=== PATIENT | female | born 1975 | race Caucasian/White ===

== ENCOUNTER 2017-09-23 14:05 | Emergency (ER) | payer OTHER ==
[2017-09-23 14:06] VITALS: BMI 26.5
[2017-09-23 14:20] VITALS: BP 118/79; PULSE 84; RESP 16; TEMP 98.7; O2SAT 98
--- NOTE | 2017-09-23 14:39 | C.PDOC ---
History Of Present Illness 41 y/o female presents to ER complaining of sinus congestion and headache for two days. She admits to taking dayquil experiencing limited relief. The patient denies any fever, cough, and chest congestion. SINUS HILDA, CERVANTES X 2 DAYS. NO FEVER. DENIES COUGH, CHEST HILDA. LIMITED RELIEF W DAYQUIL EXAM NAD HEENT +SINUS TEND W HILDA; +CLEAR RHINORRHEA LUNGS CTA B/L NO W/R/R Time Seen by Provider: 09/23/17 14:19 Chief Complaint (Nursing): Cough, Cold, Congestion History Per: Patient History/Exam Limitations: no limitations Onset/Duration Of Symptoms: Days Current Symptoms Are (Timing): Still Present Location Of Pain: Sinus/es, Headache Associated Symptoms: denies: Fever, Cough, Other (chest congestion ) Recent travel outside of the [place]: No Past Medical History Reviewed: Historical Data, Nursing Documentation, Vital Signs Vital Signs: Last Vital Signs Temp 98.7 F 09/23/17 14:17 Pulse 84 09/23/17 14:17 Resp 16 09/23/17 14:17 BP 118/79 09/23/17 14:17 Pulse Ox 98 09/23/17 14:39 - Medical History PMH: No Chronic Diseases Surgical History: - [facility] Procedures INJECT/INFUSE NEC (11/17/14) Family History: States: Unknown Family Hx - Social History Hx Alcohol Use: No Hx Substance Use: No - Immunization History Hx Tetanus Toxoid Vaccination: No Hx Influenza Vaccination: No Hx Pneumococcal Vaccination: No Review Of Systems Except As Marked, All Systems Reviewed And Found Negative. Constitutional: Negative for: Fever Cardiovascular: Negative for: Chest Pain Respiratory: Negative for: Cough Physical Exam - Physical Exam Appears: Well, Non-toxic, No Acute Distress Skin: Normal Color, Warm, No Rash Head: Atraumatic, Normacephalic Eye(s): bilateral: PERRL, EOMI Ear(s): Bilateral: Normal Nose: Other (+SINUS TEND W HILDA) Oral Mucosa: Moist, Other (+CLEAR RHINORRHEA) Neck: Normal ROM Chest: Symmetrical Cardiovascular: Rhythm Regular, No Murmur Respiratory: Normal Breath Sounds (CTA b/l ), No Rales, No Rhonchi, No Wheezing , Other (NARD) Gastrointestinal/Abdominal: Bowel Sounds, Soft, No Tenderness Back: Normal Inspection Extremity: Normal ROM Extremity: Bilateral: Atraumatic, Normal Color And Temperature, Normal ROM Pulses: Left Radial: Normal, Right Radial: Normal Neurological/Psych: Oriented x3 Gait: Steady ED Course And Treatment O2 Sat by Pulse Oximetry: 98 (RA) Pulse Ox Interpretation: Normal Progress Note: Impression: 41 y/o female with sinus congestion and headache. Plan: --Sudafed Tab 60 mg PO Disposition Counseled Patient/Family Regarding: Diagnosis, Need For Followup, Rx Given - Disposition [facility] [Outside] Disposition: HOME/ ROUTINE Disposition Time: 14:38 Condition: IMPROVED Prescriptions: Oxymetazoline 0.05% [Afrin 0.05%] 30 spr NS Q12H #1 bottle Pseudoephedrine HCl [Sudafed 24 Hour] 240 mg PO DAILY PRN #1 unit PRN Reason: Sinus Symptoms Instructions: Sinusitis, Adult (DC) Forms: [employer] (Albanian), Work Excuse - Clinical Impression Clinical Impression: Sinusitis - PA / JOURNALIST / Resident Statement MD/DO has reviewed & agrees with the documentation as recorded. - Scribe Statement The provider has reviewed the documentation as recorded by the Scribe (Fabiola Sidhu) Provider Attestation: All medical record entries made by the Scribe were at my direction and personally dictated by me. I have reviewed the chart and agree that the record accurately reflects my personal performance of the history, physical exam, medical decision making, and the department course for this patient. I have also personally directed, reviewed, and agree with the discharge instructions and disposition.
== END 2017-09-23 14:46 | disposition home or self-care (01) ==
LOC: C.ER 14:05
DX: J32.9 Chronic sinusitis, unspecified (principal)

== ENCOUNTER 2018-04-07 14:58 | Emergency (ER) | payer OTHER ==
[2018-04-07 14:58] VITALS: BMI 26.5
[2018-04-07 15:16] VITALS: BP 121/77
--- NOTE | 2018-04-07 16:02 | C.PDOC ---
History Of Present Illness 42 year old female presents to the ED complaining of sore throat and cough for 3 days. Reports she has been taking Advil for bodyaches. Denies any sick contacts or recent travels. Time Seen by Provider: 04/07/18 15:22 Chief Complaint (Nursing): Cough, Cold, Congestion History Per: Patient History/Exam Limitations: no limitations Onset/Duration Of Symptoms: Days (3) Current Symptoms Are (Timing): Still Present Location Of Pain: Throat Sick Contacts (Context): None Associated Symptoms: Sore Throat, Cough Past Medical History Reviewed: Historical Data, Nursing Documentation, Vital Signs Vital Signs: Last Vital Signs Temp 98.7 F 04/07/18 15:04 Pulse 75 04/07/18 15:04 Resp 20 04/07/18 15:04 BP 121/77 04/07/18 15:04 Pulse Ox 97 04/07/18 15:04 - Medical History PMH: No Chronic Diseases Surgical History: - [facility] Procedures INJECT/INFUSE NEC (11/17/14) Family History: States: No Known Family Hx - Social History Hx Alcohol Use: No Hx Substance Use: No - Immunization History Hx Tetanus Toxoid Vaccination: No Hx Influenza Vaccination: No Hx Pneumococcal Vaccination: No Review Of Systems Except As Marked, All Systems Reviewed And Found Negative. ENT: Positive for: Throat Pain Respiratory: Positive for: Cough Physical Exam - Physical Exam Appears: Non-toxic, No Acute Distress Skin: Warm, Dry Head: Normacephalic Eye(s): bilateral: Normal Inspection, PERRL, EOMI Ear(s): Bilateral: Normal Nose: Normal Oral Mucosa: Moist Tongue: Normal Appearing Lips: Normal Appearing Teeth: Normal Dentition Gingiva: Normal Appearing Throat: Other (hypertrophy and erythema with scant exudates) Chest: Symmetrical Cardiovascular: Rhythm Regular, No Murmur Respiratory: Normal Breath Sounds, No Rales, No Rhonchi, No Wheezing Gastrointestinal/Abdominal: Soft, No Tenderness Extremity: Bilateral: Atraumatic, Normal Color And Temperature, Normal ROM Neurological/Psych: Oriented x3 Gait: Steady ED Course And Treatment O2 Sat by Pulse Oximetry: 97 Medical Decision Making Medical Decision Making: Assessment: sore throat and cough Plan: * Zithromycin 500mg PO * Ibuprofen 600mg PO * POC Urine Preg Diagnosis: Pharyngitis Disposition - Disposition Referrals: Pal Quintero MD [Medical Doctor] - Disposition: HOME/ ROUTINE Disposition Time: 16:15 Condition: STABLE Additional Instructions: follow up with your doctor within 2 days call to make an appointment take medications as prescribed return to ER if symptoms worsens or progress Prescriptions: Azithromycin [Zithromax] 250 mg PO DAILY #4 tab Benzonatate [Tessalon Perles] 100 mg PO BID PRN #14 tab PRN Reason: Cough And Congestion Naproxen [Naprosyn] 500 mg PO BID PRN #16 tab PRN Reason: Pain, Moderate (4-7) Instructions: Sore Throat, Adult (DC) Forms: [employer] (Romansh), General Discharge Instructions - Clinical Impression Clinical Impression: Pharyngitis - Scribe Statement The provider has reviewed the documentation as recorded by the Scribharika Leigh All medical record entries made by the Stuartibharika were at my direction and personally dictated by me. I have reviewed the chart and agree that the record accurately reflects my personal performance of the history, physical exam, medical decision making, and the department course for this patient. I have also personally directed, reviewed, and agree with the discharge instructions and disposition.
[2018-04-07 16:38] VITALS: PULSE 70; RESP 18; TEMP 97.8; O2SAT 100
== END 2018-04-07 16:38 | disposition home or self-care (01) ==
LOC: C.ER 14:58
DX: J02.9 Acute pharyngitis, unspecified (principal)

== ENCOUNTER 2018-05-02 10:09 | Outpatient (CLI) | payer OTHER | END 2018-05-02 10:10 | disposition home or self-care (01) | LOC: C.DIABED 10:09 | DX: E66.3 Overweight (principal); E66.9 Obesity, unspecified ==